=== PATIENT | male | born 1975 | race Caucasian/White ===

== ENCOUNTER 2016-08-19 14:18 | Emergency (ER) | payer MEDICARE | END 2016-08-19 15:35 | disposition home or self-care (01) | LOC: ER 14:18 | DX: L02.415 Cutaneous abscess of right lower limb (principal); C95.91 Leukemia, unspecified, in remission; F41.9 Anxiety disorder, unspecified; K75.9 Inflammatory liver disease, unspecified; F17.210 Nicotine dependence, cigarettes, uncomplicated; Z23 Encounter for immunization; Z79.899 Other long term (current) drug therapy; Z88.0 Allergy status to penicillin; Z88.6 Allergy status to analgesic agent | CPT/HCPCS: 90471 ==